=== PATIENT | female | born 1990 | race African-American/Black ===

== ENCOUNTER 2016-07-16 13:46 | Emergency (ER) | payer BC ==
--- NOTE | ~2016-07-16 | CR211 ---
[facility] A Service of [facility] RADIOLOGY TEXT RESULTS PATIENT: ROBIN LAKHANI LOCATION: SED : [birth year] UNIT #: [id number] AGE: [address]: Pauline Miguel SEX: F ORDER DR: [id number] [place] [id number] E MR#: [id number] Acc #: [id number] NAME: ROBIN LAKHANI : 1990 SEX: F STUDY DATE/TIME: 07/16/2016 14:13 UNIT: SED ROOM: STUDY DESCRIPTION: CR Ribs Uni 2 View W PA Ch Rt Attending Physician: Pauline Miguel P.A.-C. Ordering Physician: Pauline Miguel P.A.-C. MEDICAL IMAGING REPORT This report is preliminary unless electronic signature is present. EXAM Chest with right rib series, 07/16/2016, 1413 hours. CLINICAL HISTORY 25-year-old who fell at home today complaining of right lateral rib pain, chest pain. COMPARISON None FINDINGS Upright view of the chest demonstrates normal cardiac, mediastinal, and hilar contours. The lungs are clear. There is no pleural effusion or pneumothorax. There is mild underlying S-shaped scoliosis. AP and oblique views of the right ribs demonstrate no rib fracture, pleural effusion, or pneumothorax. IMPRESSION 1. No acute rib fracture. There is no pleural effusion or pneumothorax. 2. There is underlying S-shaped scoliosis of the thoracic spine. Dictated by... Krysta De La Cruz M.D. THIS IS AN ELECTRONICALLY VERIFIED REPORT Krysta De La Cruz M.D. at 07/17/2016 9:30 AM SMM/lashell TD: 07/16/2016 17:07 [facility] A Service [facility] RADIOLOGY TEXT RESULTS PATIENT: ROBIN LAKHANI LOCATION: SED : 92 UNIT #: [id number] AGE: [address]: Pauline Miguel SEX: F ORDER DR: JOB #: [id number] MEDICAL IMAGING REPORT Page 1 of 1
== END 2016-07-16 14:50 | disposition home or self-care (01) ==
LOC: SED 13:46
DX: S29.011A Strain of muscle and tendon of front wall of thorax, initial encounter (principal); K21.9 Gastro-esophageal reflux disease without esophagitis; F17.210 Nicotine dependence, cigarettes, uncomplicated; W01.0XXA Fall on same level from slipping, tripping and stumbling without subsequent striking against object, initial encounter; Y92.009 Unspecified place in unspecified non-institutional (private) residence as the place of occurrence of the external cause
CPT/HCPCS: 71101; 99283; 99284